=== PATIENT | female | born 1990 | race Hispanic/Latino ===

== ENCOUNTER 2017-05-29 06:36 | Observation (INO) | payer BC ==
[2017-05-29 06:52] VITALS: O2SAT 100
[2017-05-29] MEDS ORDERED: Sodium Chloride 0.9% 1,000 ML IV STA (07:31)
--- NOTE | 2017-05-29 07:53 | ED PDOC ---
HPI: Abdomen Time Seen by Provider: 05/29/17 07:07 Chief Complaint (Nursing): Abdominal Pain Chief Complaint (Provider): Abdominal Pain History Per: Patient History/Exam Limitations: no limitations Onset/Duration Of Symptoms: Days (x2 days) Current Symptoms Are (Timing): Still Present Additional Complaint(s): 27 y/o female presents to the emergency department with a complaint of a constant right lower sided abdominal pain x2 days. Associated with nausea and pain with ambulation. States she was unable to sleep because pain progressively worsened throughout the night. Reports it felt like period cramps although she knew it was not associated to that because last known menstrual period was from 05/16-05/21. Patient took Ibuprofen with relief for only 2 hours. Denies vomiting, diarrhea, vaginal bleeding, fever, chills, or loss of appetite. Past Medical History Reviewed: Historical Data, Nursing Documentation, Vital Signs Vital Signs: Last Vital Signs Temp 98.2 F 05/29/17 14:45 Pulse 56 L 05/29/17 14:45 Resp 18 05/29/17 14:45 BP 112/63 05/29/17 14:45 Pulse Ox 100 05/29/17 17:22 - Medical History Other PMH: Hx of Ovarian cyst - Surgical History Surgical History: No Surg Hx - Family History Family History: States: Unknown Family Hx - Social History Current smoker - smoking cessation education provided: No Alcohol: Social Drugs: Denies - Home Medications Home Medications: Ambulatory Orders Medication Instructions Recorded Ibuprofen [Motrin Tab] 600 mg PO Q8 PRN #60 tab 05/29/17 Ondansetron ODT [Zofran ODT] 1 odt PO Q6 PRN #20 odt 05/29/17 - Allergies Allergies/Adverse Reactions: Allergies Allergy/AdvReac Type Severity Reaction Status Date / Time No Known Allergies Allergy Verified 05/29/17 06:52 Review of Systems ROS Statement: Except As Marked, All Systems Reviewed And Found Negative Constitutional: Negative for: Fever, Chills, Other (loss of appetite) Gastrointestinal: Positive for: Nausea, Abdominal Pain (Right lower side). Negative for: Vomiting, Diarrhea Genitourinary Female: Negative for: Vaginal Bleeding Physical Exam - Reviewed Nursing Documentation Reviewed: Yes Vital Signs Reviewed: Yes - Physical Exam Appears: Positive for: Non-toxic, Uncomfortable Head Exam: Positive for: ATRAUMATIC, NORMAL INSPECTION, NORMOCEPHALIC Skin: Positive for: Normal Color, Warm, Dry Neck: Positive for: Normal, Supple Gastrointestinal/Abdominal: Positive for: Soft, Tenderness (to the RLQ). Negative for: Normal Exam Extremity: Positive for: Normal ROM. Negative for: Pedal Edema Neurologic/Psych: Positive for: Alert, Oriented (x3) - Laboratory Results Result Diagrams: 05/29/17 07:40 05/29/17 07:40 - ECG O2 Sat by Pulse Oximetry: 100 (RA) Pulse Ox Interpretation: Normal Medical Decision Making Medical Decision Making: Time: 07:31 Initial impression: Differential includes ovarian cyst, ovarian torsion, and appendicitis. Initial plan: --CMP --Urine DIP & Preg --CBC w/ diff --Morphine 2 mg IVP --Sodium Chloride 1L IV --Zofran 4 mg IVP --Transvaginal US --Reevaluation Time: 10:19 --Morphine 4 mg IVP Time: 11:20 --Transvaginal US FINDINGS: UTERUS: Uterus is anteverted and at appears bicornuate, measuring approximately 6.9 x 2.5 x 4.5 cm. . . Normal in size and appearance. No fibroid or other mass lesion seen. ENDOMETRIUM: Measures approximately 6 mm mm in diameter. Unremarkable. CERVIX: No cervical abnormality identified. RIGHT OVARY: Right ovary measures approximately 3.6 x 1.3 x 3.5 cm contains multiple follicular cysts. No solid mass. Normal flow. . LEFT OVARY: Left ovary measures approximately 4.5 x 1.9 x 2.6 cm and contains multiple follicular cysts. No solid mass. Normal flow. FREE FLUID: No significant free fluid noted. OTHER FINDINGS: None. IMPRESSION: Apparent bicornuate uterus. Otherwise unremarkable pelvic ultrasound. Any further documentation will be included within ED Obs section of chart. Scribe Attestation: Documented by Maritza Galvin, acting as a scribe for Julissa Sewell MD. Provider Scribe Attestation: All medical record entries made by the Scribe were at my direction and personally dictated by me. I have reviewed the chart and agree that the record accurately reflects my personal performance of the history, physical exam, medical decision making, and the department course for this patient. I have also personally directed, reviewed, and agree with the discharge instructions and disposition. ED OBSERVATION Discharge: Yes Date of observation admission: 05/29/17 Time of observation admission: 07:14 - Observation admission statement Patient is being placed in observation because:: abdominal pain - Goals of Observation Goals of observation are:: resolution of symptoms - Progress Note Progress Note: 05/29/17 09:52 --According to ultrasound and further work up, patient was admitted for ED Observation for continuos abdominal pain. --Will complete Abd & Pelvis PO & IV Contrast --Iohexol 50 ml PO 05/29/17 12:52 --Patient resting comfortably and tolerating PO & IV Contrast for completion of CT. 05/29/17 14:22 --Patient resting comfortably and tolerating PO & IV Contrast for completion of CT. Disposition - Clinical Impression Clinical Impression: Abdominal pain - Patient ED Disposition Is Patient to be Admitted: Transfer of Care Counseled Patient/Family Regarding: Studies Performed, Diagnosis - Disposition Disposition: Transfer of Care Disposition Time: 15:00 Condition: FAIR Patient Signed Over To: Anisha Cabello
[2017-05-29 07:59] LABS: BASO # 0.1 K/uL (0.0-0.2); BASO % 0.8 % (0.0-2.0); EOS # 0.1 K/uL (0.0-0.7); EOS % 0.9 % (0.0-4.0); HEMATOCRIT 41.6 % (34.0-47.0); LYMPH # 1.9 K/uL (1.0-4.3); LYMPH % 28.8 % (20.0-40.0); MEAN CELL VOLUME 91.3 fl (81.0-99.0); MEAN CORPUSCULAR HEMOGLOBIN 30.5 pg (27.0-31.0); MEAN CORPUSCULAR HGB CONC 33.4 g/dL (33.0-37.0); MEAN PLATELET VOLUME 8.1 fl (7.2-11.7); MONO # 0.7 K/uL (0.0-0.8); MONO % 9.8 % (0.0-10.0); NEUT % 59.7 % (50.0-75.0); WHITE BLOOD COUNT 6.6 K/uL (4.8-10.8)
[2017-05-29 08:10] LABS: ALB/GLOB RATIO 1.4 (1.0-2.1); ALKALINE PHOSPHATASE 62 U/L (38-126); ALT/SGPT 32 U/L (9-52); AST/SGOT 38 U/L (14-36); BILIRUBIN,TOTAL 0.4 mg/dl (0.2-1.3); BLOOD UREA NITROGEN 16 mg/dl (7-17); CALCIUM 9.5 mg/dL (8.4-10.2); CARBON DIOXIDE 26 mmol/L (22-30); CHLORIDE 105 mmol/L (98-107); GFR AFRICAN-AMERICAN > 60; GLUCOSE,RANDOM 88 mg/dL (65-105); POTASSIUM 4.3 MMOL/L (3.6-5.0); SODIUM 140 mmol/l (132-148); TOTAL PROTEIN 8.4 G/DL (6.3-8.2)
--- NOTE | 2017-05-29 11:22 | US ---
HISTORY: rlq pelvic pain COMPARISON: None available. TECHNIQUE: Transvaginal sonographic evaluation of the pelvis performed. FINDINGS: UTERUS: Uterus is anteverted and at appears bicornuate, measuring approximately 6.9 x 2.5 x 4.5 cm. . . Normal in size and appearance. No fibroid or other mass lesion seen. ENDOMETRIUM: Measures approximately 6 mm mm in diameter. Unremarkable. CERVIX: No cervical abnormality identified. RIGHT OVARY: Right ovary measures approximately 3.6 x 1.3 x 3.5 cm contains multiple follicular cysts. No solid mass. Normal flow. . LEFT OVARY: Left ovary measures approximately 4.5 x 1.9 x 2.6 cm and contains multiple follicular cysts. No solid mass. Normal flow. FREE FLUID: No significant free fluid noted. OTHER FINDINGS: None. IMPRESSION: Apparent bicornuate uterus. Otherwise unremarkable pelvic ultrasound.
[2017-05-29] MEDS ORDERED: Iohexol 240 (50 ml) PO ONE (11:51)
[2017-05-29] MEDS ORDERED: Iohexol 300 100 ML IJ ONE (13:02)
[2017-05-29 15:04] VITALS: BP 112/63; PULSE 56; RESP 18; TEMP 98.2
--- NOTE | 2017-05-29 15:12 | ED PDOC ---
- Laboratory Results Result Diagrams: 05/29/17 07:40 05/29/17 07:40 - ECG O2 Sat by Pulse Oximetry: 100 (RA) Pulse Ox Interpretation: Normal Medical Decision Making Medical Decision Making: Time: 15:00 --Patient endorsed from Dr. Sewell to me. --Placed on observation at 09:52 this morning. Any further documentation will be included within ED Obs section of chart. Scribe Attestation: Documented by Maritza Galvin, acting as a scribe for Anisha Cabello MD. Provider Scribe Attestation: All medical record entries made by the Scribe were at my direction and personally dictated by me. I have reviewed the chart and agree that the record accurately reflects my personal performance of the history, physical exam, medical decision making, and the department course for this patient. I have also personally directed, reviewed, and agree with the discharge instructions and disposition. Disposition Counseled Patient/Family Regarding: Studies Performed, Diagnosis, Need For Followup, Rx Given - Clinical Impression Clinical Impression: Abdominal pain - POA Present On Arrival: None - Disposition Disposition: Routine/Home Disposition Time: 17:00 Condition: STABLE ED OBSERVATION Discharge: Yes Date of observation admission: 05/29/17 Time of observation admission: 09:52 - Observation admission statement Patient is being placed in observation because:: abdominal pain - Goals of Observation Goals of observation are:: resolution of symptoms - Progress Note Progress Note: 05/29/17 15:29 --Patient resting comfortably and pending official read of Abd & Pelvis CT. 05/29/17 16:06 CT A/P FINDINGS LOWER THORAX: Lung bases clear. No infiltrate effusion or basilar pneumothorax. Tiny hiatal hernia. Heart size within range of normal. No significant pericardial effusion. LIVER: Liver exhibits relatively normal size measuring 17 cm in CC dimension. Mild fatty hepatic infiltration. No obvious hepatic mass collection or calcification. Portal and splenic veins are opacified. GALLBLADDER AND BILE DUCTS: The gallbladder is physiologically distended. No evidence of intraluminal gallbladder calculi. No significant intra or extrahepatic biliary ductal dilatation. PANCREAS: Pancreas appears grossly unremarkable. SPLEEN: Spleen exhibits normal size measuring approximately 10.4 cm in greatest AP dimension. No splenic mass collection or calcification. ADRENALS: No adrenal lesions. KIDNEYS AND URETERS: Kidneys demonstrate relatively symmetric size and nephrograms. . No evidence of nephrolithiasis or hydronephrosis. No obvious renal mass or collection. BLADDER: Urinary bladder is incompletely distended which may account for slight thick- walled appearance. Possibility of a cystitis not excluded. Correlation with history an urinalysis. REPRODUCTIVE: There appears to be a bicornuate uterus. Multiple bilateral follicular cysts are present though seen to better advantage on prior pelvic ultrasound. APPENDIX: The appendix is best visualized on axial image number [id number] and coronal image number [id number]. The appendix is partially air filled. The diameter of the appendix approximately 5 mm. Questionable minimal enhancement short-segment of the appendiceal wall and some vague infiltration changes in the periappendiceal fat. Possibility of a mild early acute appendicitis cannot be excluded. Clinical correlation with physical exam and laboratory values. BOWEL: Evaluation of the bowel is limited due to incomplete opacification. The stomach is distended with oral contrast material. Visualized loops of small bowel exhibit relatively normal contour and caliber. No evidence of acute mechanical small bowel obstruction with oral contrast material extending into the colon to the level of the distal ascending colon region. Moderate amount of stool is seen throughout within the cecum and ascending colon suggesting mild fecal retention/ constipation. . No definitive abnormal mural wall thickening. PERITONEUM: Unremarkable. No fluid collection. No free air. LYMPH NODES: No significant adenopathy. VASCULATURE: Unremarkable. No aortic aneurysm. BONES: No fracture or destructive lesion. OTHER FINDINGS: None. IMPRESSION: Mild fatty hepatic infiltration. The urinary bladder is incompletely distended which may account for slight thick -walled appearance. Correlation with urinalysis suggested to exclude the possibility of a cystitis. 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 . Questionable minimal enhancement short-segment of the appendiceal wall and minor vague infiltration changes in the adjacent mesentery. . These findings are equivocal for acute appendicitis which cannot be completely excluded. Recommend correlation with physical exam and laboratory values. DW pt findings. Pt's presentation do not correlate completely with appendicitis (She is afebrile, has hunger, pain is crampy and have improved since presentation to ER, and she has no leukocytosis.) Offered hospitalization for observation for possible progression, but she is eager to go home (and eat. ) Will allow pt to eat and reevaluate. 05/29/17 17:14 Tolerated PO well. Stable for dc.
--- NOTE | 2017-05-29 16:07 | CT ---
PROCEDURE: CT abdomen and pelvis. HISTORY: abdominal pain COMPARISON: Correlation made with transvaginal ultrasound obtained earlier same day. TECHNIQUE: Contiguous axial images of the abdomen and pelvis performed following oral and intravenous injection of approximately 98 cc Omnipaque 300 contrast material. Coronal and Sagittal reformats generated. Radiation dose: Total exam DLP = dated 05/29/2017 541.89 mGy-cm. This CT exam was performed using one or more of the following dose reduction techniques: Automated exposure control, adjustment of the mA and/or kV according to patient size, and/or use of iterative reconstruction technique. FINDINGS: LOWER THORAX: Lung bases clear. No infiltrate effusion or basilar pneumothorax. Tiny hiatal hernia. Heart size within range of normal. No significant pericardial effusion. LIVER: Liver exhibits relatively normal size measuring 17 cm in CC dimension. Mild fatty hepatic infiltration. No obvious hepatic mass collection or calcification. Portal and splenic veins are opacified. GALLBLADDER AND BILE DUCTS: The gallbladder is physiologically distended. No evidence of intraluminal gallbladder calculi. No significant intra or extrahepatic biliary ductal dilatation. PANCREAS: Pancreas appears grossly unremarkable. SPLEEN: Spleen exhibits normal size measuring approximately 10.4 cm in greatest AP dimension. No splenic mass collection or calcification. ADRENALS: No adrenal lesions. KIDNEYS AND URETERS: Kidneys demonstrate relatively symmetric size and nephrograms. . No evidence of nephrolithiasis or hydronephrosis. No obvious renal mass or collection. BLADDER: Urinary bladder is incompletely distended which may account for slight thick-walled appearance. Possibility of a cystitis not excluded. Correlation with history an urinalysis. REPRODUCTIVE: There appears to be a bicornuate uterus. Multiple bilateral follicular cysts are present though seen to better advantage on prior pelvic ultrasound. APPENDIX: The appendix is best visualized on axial image number [id number] and coronal image number [id number]. The appendix is partially air filled. The diameter of the appendix approximately 5 mm. Questionable minimal enhancement short-segment of the appendiceal wall and some vague infiltration changes in the periappendiceal fat. Possibility of a mild early acute appendicitis cannot be excluded. Clinical correlation with physical exam and laboratory values. BOWEL: Evaluation of the bowel is limited due to incomplete opacification. The stomach is distended with oral contrast material. Visualized loops of small bowel exhibit relatively normal contour and caliber. No evidence of acute mechanical small bowel obstruction with oral contrast material extending into the colon to the level of the distal ascending colon region. Moderate amount of stool is seen throughout within the cecum and ascending colon suggesting mild fecal retention/ constipation. . No definitive abnormal mural wall thickening. PERITONEUM: Unremarkable. No fluid collection. No free air. LYMPH NODES: No significant adenopathy. VASCULATURE: Unremarkable. No aortic aneurysm. BONES: No fracture or destructive lesion. OTHER FINDINGS: None. IMPRESSION: Mild fatty hepatic infiltration. The urinary bladder is incompletely distended which may account for slight thick-walled appearance. Correlation with urinalysis suggested to exclude the possibility of a cystitis. 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 . Questionable minimal enhancement short-segment of the appendiceal wall and minor vague infiltration changes in the adjacent mesentery. . These findings are equivocal for acute appendicitis which cannot be completely excluded. Recommend correlation with physical exam and laboratory values.
== END 2017-05-29 17:35 | disposition home or self-care (01) ==
LOC: H.ER 06:36 → H.EROBSV 09:52
PROVIDERS: ADMIT Emergency Medicine; ATTEND Emergency Medicine
DX: R10.9 Unspecified abdominal pain (principal)
CPT/HCPCS: 74177; 76830; 80053; 81025; 85025; 96374; 96375; 96376; 99282; G0378; J1885; J2270; J2405; J7040; Q9966; Q9967